=== PATIENT | female | born 1980 | race Caucasian/White ===

== ENCOUNTER 2019-12-09 20:17 | Emergency (ER) | payer OTHER ==
[2019-12-09] MEDS ORDERED: HYDROmorphone 1 MG/ML Syringe IVPUSH ONE (20:49)
[2019-12-09] MEDS ORDERED: Ondansetron 4 MG/2 ML SDV IVPUSH ONE (20:50)
[2019-12-09] MEDS ORDERED: Sodium Chloride 0.9% 10 ML Syringe FLUSH PRN (20:50)
--- NOTE | 2019-12-09 20:56 | EDM.PDOC ---
ED HPI GENERAL MEDICAL PROBLEM - General Chief Complaint: General Stated Complaint: RECENT RIGHT ARM SURGERY PAIN AND VOMITTING Time Seen by Provider: 12/09/19 20:28 Source of Information: Reports: Patient History Limitations: Reports: No Limitations - History of Present Illness INITIAL COMMENTS - FREE TEXT/NARRATIVE: Ms. Durham is a very pleasant 39-year-old woman who now presents the ED stating that she underwent arthroscopic repair of a right biceps tendon injury on 11/28/2019, at an outpatient [facility]. She was discharged home with a prescription for an opioid pain reliever, however, she states that it made her feel weird, therefore she has not taken any since or Thursday , 12/01/2019 or 12/02/2019. Instead, she has been alternating 2 tablets of [id number] acetaminophen, twice a day, and ibuprofen 600 mg twice a day. She states that her right shoulder pain has never been well controlled, even when she was taking the opioid pain reliever. She then developed nausea and vomiting this past 12/07/2019, despite not taking the opioid pain reliever. The patient states that her right shoulder pain is out of control. She denies any new injury to her right shoulder or right upper extremity. The patient acknowledges that she has not contacted the office of her Orthopedic Surgeon about her symptoms. Here in the ED, the patient's initial BP is found to be elevated at 149/126, otherwise, she is hemodynamically stable, afebrile, saturating 98% on room air. Other than her right shoulder pain, nausea, and vomiting, the patient denies recent fever, chills, sore throat, ear pain, nasal or sinus congestion, cough, dyspnea, chest pain, palpitations, nausea, vomiting, constipation, diarrhea, abdominal pain, urinary symptoms, recent weight gain or weight loss, recent bloody bowel movements or black bowel movements, recent joint aches, headaches, or rashes. The patient states that she is scheduled to begin physical therapy this coming 12/14/2019. The patient's PCP is Karrie Olson NP. Her Orthopedic Surgeon is Dr. Nomi Swanson. Right Shoulder Pain Score (Numeric/FACES): 10 - Related Data Allergies Allergy/AdvReac Type Severity Reaction Status Date / Time adhesive Allergy Rash Verified 12/09/19 20:28 Bleach (Sodium Hypochlorite) Allergy Rash Verified 12/09/19 20:28 latex Allergy Rash Verified 12/09/19 20:28 Home Meds: Home Meds ALPRAZolam [Xanax] 1 mg PO QID PRN 12/09/19 [History] Dicyclomine [Bentyl] 0 mg PO TID 12/09/19 [History] Ondansetron [Zofran ODT] 1 tab PO Q8H PRN #10 tab.dis 12/09/19 [Rx] Past Medical History HEENT History: Reports: Impaired Vision Psychiatric History: Reports: Anxiety - Past Surgical History HEENT Surgical History: Reports: Adenoidectomy, Oral Surgery (wisdom teeth extraction), Tonsillectomy GI Surgical History: Reports: Cholecystectomy (2012) Female Surgical History: Reports: Section (x 3), D&C (x 1), Hysterectomy (partial) Musculoskeletal Surgical History: Reports: Shoulder Surgery (right, arthroscopic, 11/28/2019) Social & Family History - Tobacco Use Smoking Status *Q: Current Every Day Smoker Years of Tobacco use: 18 Packs/Tins Daily: 0.2 Packs/Tins Daily Comment: Down from 1 ppd - Caffeine Use Caffeine Use: Reports: Energy Drinks, Soda - Alcohol Use Alcohol Use History: Yes Alcohol Use Frequency: Rarely - Recreational Drug Use Recreational Drug Use: No - Living Situation & Occupation Living situation: Reports: Single, with Significant Other (Boyfriend) Occupation: Unemployed ED ROS GENERAL - Review of Systems Review Of Systems: Comprehensive ROS is negative, except as noted in HPI. ED EXAM, GENERAL - Physical Exam Exam: See Below Exam Limited By: No Limitations General Appearance: Alert, WD/WN, No Apparent Distress Extremities: Other (The patient's right upper extremity is in a shoulder immobilizer, which was not removed for examination. There are surgical wounds over the upper lateral shoulder, with Steri-Strips still attached, and there are several aging ecchymoses to the anterior upper arm. Neurovascular status of the right upper extremity is intact.) Course - Vital Signs Last Recorded V/S: Last Vital Signs Temp 36.4 C 12/09/19 20:25 Pulse 98 12/09/19 20:25 Resp 18 12/09/19 20:25 BP 149/126 H 07/31/20 20:25 Pulse Ox 98 12/09/19 20:25 - Orders/Labs/Meds Orders: Active Orders 24 hr Category Date Time Status Peripheral IV Care [RC] . DIRECTED Care 12/09/19 20:50 Active Peripheral IV Insertion Adult [OM.PC] Routine Oth 12/09/19 20:50 Ordered Meds: Medications Discontinued Medications Generic Name Dose Route Start Last Admin Trade Name Fremaddy PRN Reason Stop Dose Admin Hydromorphone HCl 1 mg 12/09/19 20:49 12/09/19 21:00 Dilaudid IVPUSH 12/09/19 20:50 1 mg ONETIME ONE Administration Ondansetron HCl 4 mg 12/09/19 20:50 12/09/19 21:00 Zofran IVPUSH 12/09/19 20:51 4 mg ONETIME ONE Administration Sodium Chloride 10 ml 12/09/19 20:50 12/09/19 21:00 Saline Flush FLUSH 10 ml ASDIRECTED PRN Administration Keep Vein Open - Re-Assessments/Exams Free Text/Narrative Re-Assessment/Exam: 12/09/19 20:50 As above, the patient underwent right shoulder arthroscopic surgery on 11/28/2019, but has not been taking her prescribed opioid pain reliever since , 12/01/2019 or 12/02/2019, due to them making her feel weird. For reasons unclear, she developed nausea and vomiting this past 12/07/2019, despite not being on the opioid pain reliever. She states that her pain was never well controlled, even when she was taking the oral opioids. No new injury to the arm, and other than some aging ecchymosis and healing surgical wounds still covered by Steri-Strips, there are no visible abnormalities to the arm. I do not see an indication for x-rays. For today's purposes, the patient will be given an injection of IV Dilaudid and IV Zofran, after which I will discharge her home with a prescription for oral Zofran. I encouraged her to contact the office of Dr. Swanson, to let them know what is going on. Departure - Departure Time of Disposition: 20:55 Disposition: Home, Self-Care 01 Condition: Good Clinical Impression: Nausea & vomiting, Acute postoperative pain of right shoulder - Discharge Information *PRESCRIPTION DRUG MONITORING PROGRAM REVIEWED*: No *COPY OF PRESCRIPTION DRUG MONITORING REPORT IN PATIENT JOSSELIN: No Prescriptions: Ondansetron [Zofran ODT] 1 tab PO Q8H PRN #10 tab.dis PRN Reason: Nausea/Vomiting Instructions: Nausea and Vomiting, Adult Referrals: Karrie Olson NP [Primary Care Provider] - Nomi Swanson MD [Ordering Only Provider] - Forms: ED Department Discharge Additional Instructions: You were seen in the emergency room for uncontrolled right shoulder pain following surgery on the shoulder on 11/28/2019, along with nausea and vomiting that developed this past 12/07/2019. You were treated with an injection of the pain medicine Dilaudid, and the anti- nausea medicine Zofran in the ER. A prescription for Zofran has been sent to the [place] [facility], located in the [facility] grocery store. You may dissolve 1 tablet of Zofran on your tongue up to every 8 hours, as needed for nausea/vomiting. We recommend that you continue to take vgib-fwz-[id number] ibuprofen, 3 tablets (600 mg) around the clock, with food, as needed for discomfort. You may take 1 to 2 tablets of your prescription opioid pain reliever up to every 6 hours, as needed for pain not relieved by ibuprofen. If you take the opioid pain reliever, do not drive for 12 hours afterwards. The opioid pain reliever may cause constipation, so consider taking a stool softener. If you are taking the opioid pain reliever, do not also take acetaminophen (Tylenol), since there is already acetaminophen in the opioid pain reliever. As discussed, we strongly recommend that you contact the office of your Orthopedic Surgeon, Dr. Nomi Swanson, to let them know about your pain, nausea, and vomiting. If any other problems, please do not hesitate to return to the ER. Sepsis Event Note (ED) - Evaluation Sepsis Screening Result: No Definite Risk - Focused Exam Vital Signs: Vital Signs Temp Pulse Resp BP Pulse Ox 12/09/19 20:25 36.4 C 98 18 149/126 H 98 - My Orders Last 24 Hours: My Active Orders 12/09/19 20:50 Peripheral IV Care [RC] . DIRECTED Peripheral IV Insertion Adult [OM.PC] Routine - Assessment/Plan Last 24 Hours: My Active Orders 12/09/19 20:50 Peripheral IV Care [RC] . DIRECTED Peripheral IV Insertion Adult [OM.PC] Routine
== END 2019-12-09 21:25 | disposition home or self-care (01) ==
LOC: JD.ED 20:17
DX: G89.18 Other acute postprocedural pain (principal); M25.511 Pain in right shoulder; R11.2 Nausea with vomiting, unspecified; F41.9 Anxiety disorder, unspecified; F17.210 Nicotine dependence, cigarettes, uncomplicated; Z91.048 Other nonmedicinal substance allergy status; Z91.040 Latex allergy status; Z79.899 Other long term (current) drug therapy
CPT/HCPCS: 96374; 96375; 99283; J1170; J2405

== ENCOUNTER 2020-08-24 21:52 | Emergency (ER) | payer BC, MEDICAID ==
[2020-08-24] MEDS ORDERED: Amoxicillin/Clavulanate K 875-125 MG Tab PO ONE (22:12)
[2020-08-24] MEDS ORDERED: Ketorolac 60 MG/2 ML SDV IM ONE (22:13)
[2020-08-24] MEDS ORDERED: Acetaminophen/HYDROcodone 325-5 MG Tab PO ONE (22:13)
--- NOTE | 2020-08-24 22:21 | EDM.PDOC ---
ED HPI GENERAL MEDICAL PROBLEM - General Chief Complaint: ENT Problem Stated Complaint: ear pain Time Seen by Provider: 08/24/20 22:06 Source of Information: Reports: Patient, RN Notes Reviewed History Limitations: Reports: No Limitations - History of Present Illness INITIAL COMMENTS - FREE TEXT/NARRATIVE: Patient is a 39-year-old female presenting to the emergency department with complaints of right ear pain for the last week. She states she has a history of recurrent ear infections and normally gets 2 in the spring and 2 in the fall. States that her hearing is muffled and she can feel popping in her ear. Denies any fever. She has been using Tylenol and ibuprofen for pain with little relief. Right Ear Pain Score (Numeric/FACES): 10 - Related Data Allergies Allergy/AdvReac Type Severity Reaction Status Date / Time adhesive Allergy Rash Verified 08/24/20 22:03 bee venom protein (honey bee) Allergy Airway Verified 08/24/20 22:03 Tightness Bleach (Sodium Hypochlorite) Allergy Rash Verified 08/24/20 22:03 latex Allergy Rash Verified 08/24/20 22:03 Home Meds: Home Meds ALPRAZolam [Xanax] 1 mg PO QID PRN 12/09/19 [History] Dicyclomine [Bentyl] 10 mg PO TID PRN 12/09/19 [History] Acetaminophen/HYDROcodone [[place]port 325-5 MG] 1 tab PO Q4H PRN #5 tablet 08/24/20 [Rx] Amoxicillin/Potassium Clav [Augmentin 875-125 Tablet] 1 each PO BID 7 Days #13 tablet 08/24/20 [Rx] Verapamil [Calan SR] 120 mg PO DAILY PRN 08/24/20 [History] Past Medical History HEENT History: Reports: Impaired Vision, Other (See Below) Other HEENT History: ear infections Cardiovascular History: Reports: None Respiratory History: Reports: None [employer] History: Reports: Neurological History: Reports: Migraines Psychiatric History: Reports: Anxiety Endocrine/Metabolic History: Reports: None Hematologic History: Reports: None Immunologic History: Reports: None Oncologic (Cancer) History: Reports: None Dermatologic History: Reports: None - Infectious Disease History Infectious Disease History: Reports: None - Past Surgical History HEENT Surgical History: Reports: Adenoidectomy, Myringotomy w Tube(s), Oral Surgery, Tonsillectomy GI Surgical History: Reports: Cholecystectomy Female Surgical History: Reports: Section, D&C, Hysterectomy Musculoskeletal Surgical History: Reports: Shoulder Surgery Social & Family History - Family History Family Medical History: No Pertinent Family History - Tobacco Use Tobacco Use Status *Q: Current Every Day Tobacco User Years of Tobacco use: 5 Packs/Tins Daily: 0.5 - Caffeine Use Caffeine Use: Reports: Energy Drinks, Soda - Recreational Drug Use Recreational Drug Use: No - Living Situation & Occupation Living situation: Reports: Single, with Significant Other (Boyfriend) Occupation: Unemployed ED ROS ENT - Review of Systems Review Of Systems: Comprehensive ROS is negative, except as noted in HPI. ED EXAM, ENT - Physical Exam Exam: See Below Exam Limited By: No Limitations General Appearance: Alert, WD/WN, No Apparent Distress Ears: Normal External Exam, Normal Canal, TM Bulging (Right), TM Dullness (Right), TM Erythema (Right). No: TM Blood, TM Fluid, TM Perforation, TM Vesicles Respiratory/Chest: No Respiratory Distress, Lungs Clear, Normal Breath Sounds, No Accessory Muscle Use, Chest Non-Tender Cardiovascular: Normal Peripheral Pulses, Regular Rate, Rhythm, No Edema, No Gallop, No JVD, No Murmur, No Rub Course - Vital Signs Last Recorded V/S: Last Vital Signs Temp 97.8 F 08/24/20 22:00 Pulse 85 08/24/20 22:00 Resp 16 08/24/20 22:00 BP 142/92 H 08/24/20 22:00 Pulse Ox 100 08/24/20 22:00 - Orders/Labs/Meds Meds: Medications Discontinued Medications Generic Name Dose Route Start Last Admin Trade Name Paulo PRN Reason Stop Dose Admin Hydrocodone Bitart/Acetaminophen 1 tab 08/24/20 22:13 Acetaminophen/Hydrocodone 325-5 Mg Tab PO 08/24/20 22:14 ONETIME ONE Amoxicillin/Clavulanate Potassium 1 tab 08/24/20 22:12 Amoxicillin/Clavulanate K 875-125 Mg Tab PO 08/24/20 22:13 ONETIME ONE Ketorolac Tromethamine 60 mg 08/24/20 22:13 Ketorolac 60 Mg/2 Ml Sdv IM 08/24/20 22:14 ONETIME ONE - Re-Assessments/Exams Free Text/Narrative Re-Assessment/Exam: Patient is a 39-year-old female presenting to the emergency department with complaints of a 1 week history of pain to her right ear. On exam, her TM is erythematous, bulging, and dull consistent with a diagnosis of otitis media. I will start her on Augmentin for treatment of this. Also give her a shot of Toradol as well as a Waterport in the emergency department. I will send a short course of Waterport for pain as well as antibiotics to [place] pharmacy. Discharge instructions as documented. Departure - Departure Time of Disposition: 22:18 Disposition: Home, Self-Care 01 Condition: Good Clinical Impression: Otitis media Qualifiers: Otitis media type: serous Chronicity: acute Laterality: right Recurrence: not specified as recurrent Qualified Code(s): H65.01 - Acute serous otitis media, right ear - Discharge Information *PRESCRIPTION DRUG MONITORING PROGRAM REVIEWED*: Yes *COPY OF PRESCRIPTION DRUG MONITORING REPORT IN PATIENT JOSSELIN: No Prescriptions: Amoxicillin/Potassium Clav [Augmentin 875-125 Tablet] 1 each PO BID 7 Days #13 tablet Acetaminophen/HYDROcodone [[place]port 325-5 MG] 1 tab PO Q4H PRN #5 tablet PRN Reason: Pain Instructions: Otitis Media, Adult, [id number] Referrals: Karrie Olson NP [Primary Care Provider] - Additional Instructions: You were seen in the emergency department today for right ear last week. On exam, you do have a right ear infection. You been started on Augmentin which is an antibiotic. Take this medication as prescribed. Recommend routine Tylenol and ibuprofen for pain. For pain not relieved by this, short course of Tylenol with hydrocodone has been sent. Take this only as prescribed. Do not work or drive for 12 hours after taking this medication as it can be sedating. If symptoms fail to improve by early next week, recommend follow-up in the clinic with your primary care provider. Return to ER as needed. Sepsis Event Note (ED) - Evaluation Sepsis Screening Result: No Definite Risk - Focused Exam Vital Signs: Vital Signs Temp Pulse Resp BP Pulse Ox 08/24/20 22:00 97.8 F 85 16 142/92 H 100
== END 2020-08-24 22:28 | disposition home or self-care (01) ==
LOC: JD.ED 21:52
DX: H65.01 Acute serous otitis media, right ear (principal); Z91.048 Other nonmedicinal substance allergy status; Z91.030 Bee allergy status; Z91.040 Latex allergy status; Z72.0 Tobacco use
CPT/HCPCS: 96372; 99282; A9270; J1885; 99283

== ENCOUNTER 2020-10-03 16:07 | Emergency (ER) | payer MEDICAID ==
[2020-10-03] MEDS ORDERED: LORazepam 2 MG/ML SDV IVPUSH ONE (16:15)
--- NOTE | 2020-10-03 16:26 | EDM.PDOC ---
ED HPI GENERAL MEDICAL PROBLEM - General Chief Complaint: Neurological Problem Stated Complaint: [facility] Time Seen by Provider: 10/03/20 16:07 - History of Present Illness INITIAL COMMENTS - FREE TEXT/NARRATIVE: 40-year-old female presents the emergency department after being brought in by EMS after having a apparent seizure. Patient does not have a history of seizure disorder. No family history. The patient was in her car in a parking lot with her kids who reported that her eyes rolled back and she was shaking and she slumped back in her seat. It is unclear how long the seizure lasted and we have no more details on this. Patient denies illicit drug use or alcohol she uses Xanax on occasion for anxiety has not used this in a couple of days. She denies any possibility of . She has had a hysterectomy in the past. Headache Pain Score (Numeric/FACES): 7 - Related Data Allergies Allergy/AdvReac Type Severity Reaction Status Date / Time adhesive Allergy Rash Verified 10/03/20 16:13 bee venom protein (honey bee) Allergy Airway Verified 10/03/20 16:13 Tightness Bleach (Sodium Hypochlorite) Allergy Rash Verified 10/03/20 16:13 latex Allergy Rash Verified 10/03/20 16:13 Home Meds: Home Meds ALPRAZolam [Xanax] 1 mg PO QID PRN 12/09/19 [History] Verapamil [Calan SR] 120 mg PO DAILY PRN 08/24/20 [History] Past Medical History HEENT History: Reports: Impaired Vision, Other (See Below) Other HEENT History: ear infections Cardiovascular History: Reports: None Respiratory History: Reports: None 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: Neurological History: Reports: Migraines Psychiatric History: Reports: Anxiety Endocrine/Metabolic History: Reports: None Hematologic History: Reports: None Immunologic History: Reports: None Oncologic (Cancer) History: Reports: None Dermatologic History: Reports: None - Infectious Disease History Infectious Disease History: Reports: None - Past Surgical History HEENT Surgical History: Reports: Adenoidectomy, Myringotomy w Tube(s), Oral Surgery, Tonsillectomy GI Surgical History: Reports: Cholecystectomy Female Surgical History: Reports: Section, D&C, Hysterectomy Musculoskeletal Surgical History: Reports: Shoulder Surgery Social & Family History - Family History Family Medical History: No Pertinent Family History - Caffeine Use Caffeine Use: Reports: Energy Drinks, Soda - Living Situation & Occupation Living situation: Reports: Single, with Significant Other (Boyfriend) Occupation: Unemployed ED ROS GENERAL - Review of Systems Review Of Systems: See Below Constitutional: Reports: No Symptoms HEENT: Reports: No Symptoms Respiratory: Reports: No Symptoms Cardiovascular: Reports: No Symptoms GI/Abdominal: Reports: No Symptoms : Reports: No Symptoms Musculoskeletal: Reports: No Symptoms Skin: Reports: No Symptoms Neurological: Reports: Headache (She has chronic migraines but is on prophylactic therapy), Seizure Psychiatric: Reports: No Symptoms Hematologic/Lymphatic: Reports: No Symptoms Immunologic: Reports: No Symptoms ED EXAM, GENERAL - Physical Exam Exam: See Below Exam Limited By: No Limitations General Appearance: Alert, No Apparent Distress, Other (Upon EMS arriving she was postictal but she was nearly back to normal when she arrived here she has loss of events during the seizure but does recall walking out to the car.) Eye Exam: Bilateral Eye: Normal Inspection, PERRL Ears: Normal External Exam, Normal Canal, Hearing Grossly Normal, Normal TMs Nose: Normal Inspection, Normal Mucosa, No Blood Throat/Mouth: Normal Inspection, Normal Lips, Normal Teeth, Normal Gums, Normal Oropharynx, Normal Voice, No Airway Compromise, Other (She has what could be given little bit of trauma at the tip of her tongue but she is thinks this might be related to a prior piercing.) Head: Atraumatic, Normocephalic Neck: Normal Inspection, Supple, Non-Tender, Full Range of Motion Respiratory/Chest: No Respiratory Distress, Lungs Clear, Normal Breath Sounds Cardiovascular: Regular Rate, Rhythm, No Edema, No Murmur GI/Abdominal: Normal Bowel Sounds, Soft, Non-Tender Back Exam: Normal Inspection. No: CVA Tenderness (L), CVA Tenderness (R) Extremities: Normal Inspection, No Pedal Edema Neurological: Alert, Oriented, Normal Cognition Psychiatric: Normal Affect, Normal Mood Skin Exam: Warm, Dry, Intact #1 Interpretation EKG Date: 10/03/20 Rhythm: NSR Rate (Beats/Min): 89 [place]: Normal P-Wave: Present QRS: Normal ST-T: Normal QT: Normal Comparison: NA - No Prior EKG EKG Interpretation Comments: Normal EKG Course - Vital Signs Last Recorded V/S: Last Vital Signs Temp 36.2 C 10/03/20 16:17 Pulse 104 H 10/03/20 16:17 Resp 18 10/03/20 16:17 BP 133/89 10/03/20 16:17 Pulse Ox 96 10/03/20 16:17 - Orders/Labs/Meds Orders: Active Orders 24 hr Category Date Time Status EKG Documentation Completion [RC] STAT Care 10/03/20 16:17 Active Labs: Laboratory Tests 10/03/20 10/03/20 10/03/20 Range/Units 16:27 16:27 17:50 WBC 5.12 (3.98-10.04) K/mm3 RBC 4.61 (3.98-5.22) M/mm3 Hgb 14.4 (11.2-15.7) gm/dl Hct 43.0 (34.1-44.9) % MCV 93.3 (79.4-94.8) fl MCH 31.2 (25.6-32.2) pg MCHC 33.5 (32.2-35.5) g/dl RDW Std Deviation 42.3 (36.4-46.3) fL Plt Count 378 H (182-369) K/mm3 MPV 8.5 L (9.4-12.3) fl Neut % (Auto) 54.6 (34.0-71.1) % Lymph % (Auto) 35.0 (19.3-51.7) % [place] % (Auto) 8.4 (4.7-12.5) % Eos % (Auto) 1.6 (0.7-5.8) Baso % (Auto) 0.2 (0.1-1.2) % Neut # (Auto) 2.80 (1.56-6.13) K/mm3 Lymph # (Auto) 1.79 (1.18-3.74) K/mm3 [place] # (Auto) 0.43 H (0.24-0.36) K/mm3 Eos # (Auto) 0.08 (0.04-0.36) K/mm3 Baso # (Auto) 0.01 (0.01-0.08) K/mm3 Sodium 139 (136-145) mEq/L Potassium 4.1 (3.5-5.1) mEq/L Chloride 103 (98-107) mEq/L Carbon Dioxide 27 (21-32) mEq/L Anion Gap 13.1 (5-15) BUN 9 (7-18) mg/dL Creatinine 0.8 (0.55-1.02) mg/dL Est Cr Clr Drug Dosing 84.95 mL/min Estimated GFR (MDRD) > 60 (>60) mL/min BUN/Creatinine Ratio 11.3 L (14-18) Glucose 70 (70-99) mg/dL Calcium 8.7 (8.5-10.1) mg/dL Total Bilirubin 0.2 (0.2-1.0) mg/dL AST 20 (15-37) U/L ALT 30 (14-59) U/L Alkaline Phosphatase 95 (46-116) U/L Total Protein 7.0 (6.4-8.2) g/dl Albumin 3.8 (3.4-5.0) g/dl Globulin 3.2 gm/dL Albumin/Globulin Ratio 1.2 (1-2) Urine Color Yellow (Yellow) Urine Appearance Clear (Clear) Urine pH 6.0 (5.0-8.0) Ur Specific [place] 1.020 (1.005-1.030) Urine Protein Negative (Negative) Urine Glucose (UA) Negative (Negative) Urine Ketones Negative (Negative) Urine Occult Blood Negative (Negative) Urine Nitrite Negative (Negative) Urine Bilirubin Negative (Negative) Urine Urobilinogen 0.2 (0.2-1.0) Ur Leukocyte Esterase Negative (Negative) Urine Opiates Screen (PKTNHN=053) Ur Buprenorphine Scrn (CUTOFF=10) Ur Oxycodone Screen (UUZ4CR=857) Urine Methadone Screen (VBVZKJ=473) Ur Propoxyphene Screen (MKHHYR=399) Ur Barbiturates Screen (KVBLLG=517) Ur Tricyclics Screen (DVWGGX=436) Ur Phencyclidine Scrn (CUTOFF=25) Ur Amphetamine Screen (EDEAGL=582) U Methamphetamines Scrn (ZWFQVG=226) U Benzodiazepines Scrn (SLEJYE=452) U Cocaine Metab Screen (LWJRLT=135) U Marijuana (THC) Screen (CUTOFF=50) Ethyl Alcohol 0.00 (0.00) gm% 10/03/20 Range/Units 17:50 WBC (3.98-10.04) K/mm3 RBC (3.98-5.22) M/mm3 Hgb (11.2-15.7) gm/dl Hct (34.1-44.9) % MCV (79.4-94.8) fl MCH (25.6-32.2) pg MCHC (32.2-35.5) g/dl RDW Std Deviation (36.4-46.3) fL Plt Count (182-369) K/mm3 MPV (9.4-12.3) fl Neut % (Auto) (34.0-71.1) % Lymph % (Auto) (19.3-51.7) % [place] % (Auto) (4.7-12.5) % Eos % (Auto) (0.7-5.8) Baso % (Auto) (0.1-1.2) % Neut # (Auto) (1.56-6.13) K/mm3 Lymph # (Auto) (1.18-3.74) K/mm3 [place] # (Auto) (0.24-0.36) K/mm3 Eos # (Auto) (0.04-0.36) K/mm3 Baso # (Auto) (0.01-0.08) K/mm3 Sodium (136-145) mEq/L Potassium (3.5-5.1) mEq/L Chloride (98-107) mEq/L Carbon Dioxide (21-32) mEq/L Anion Gap (5-15) BUN (7-18) mg/dL Creatinine (0.55-1.02) mg/dL Est Cr Clr Drug Dosing mL/min Estimated GFR (MDRD) (>60) mL/min BUN/Creatinine Ratio (14-18) Glucose (70-99) mg/dL Calcium (8.5-10.1) mg/dL Total Bilirubin (0.2-1.0) mg/dL AST (15-37) U/L ALT (14-59) U/L Alkaline Phosphatase (46-116) U/L Total Protein (6.4-8.2) g/dl Albumin (3.4-5.0) g/dl Globulin gm/dL Albumin/Globulin Ratio (1-2) Urine Color (Yellow) Urine Appearance (Clear) Urine pH (5.0-8.0) Ur Specific [place] (1.005-1.030) Urine Protein (Negative) Urine Glucose (UA) (Negative) Urine Ketones (Negative) Urine Occult Blood (Negative) Urine Nitrite (Negative) Urine Bilirubin (Negative) Urine Urobilinogen (0.2-1.0) Ur Leukocyte Esterase (Negative) Urine Opiates Screen Negative (PMKTVV=028) Ur Buprenorphine Scrn Negative (CUTOFF=10) Ur Oxycodone Screen Negative (SBC1VR=417) Urine Methadone Screen Negative (HGUGDD=855) Ur Propoxyphene Screen Negative (GKSAYU=605) Ur Barbiturates Screen Negative (ALLTCA=509) Ur Tricyclics Screen Negative (GOLCCF=620) Ur Phencyclidine Scrn Negative (CUTOFF=25) Ur Amphetamine Screen Negative (UOXDUQ=081) U Methamphetamines Scrn Negative (YZLDKP=396) U Benzodiazepines Scrn Presumptive positive H (VULUKI=651) U Cocaine Metab Screen Negative (FOGERO=216) U Marijuana (THC) Screen Negative (CUTOFF=50) Ethyl Alcohol (0.00) gm% Meds: Medications Discontinued Medications Generic Name Dose Route Start Last Admin Trade Name Freq PRN Reason Stop Dose Admin Lorazepam 1 mg 10/03/20 16:15 10/03/20 16:25 Lorazepam 2 Mg/Ml Sdv IVPUSH 10/03/20 16:16 1 mg ONETIME ONE Administration - Re-Assessments/Exams Free Text/Narrative Re-Assessment/Exam: 10/03/20 18:[address] is unremarkable. I did discuss the patient having a MRI with and without contrast in the near future.. Laboratory evaluation is unremarkable benzodiazepines did show up in her urine but the patient uses Xanax on an as- needed basis for anxiety. I explained to the patient absolutely no uncertain terms she cannot drive until this all gets sorted out. Departure - Departure Time of Disposition: 18:59 Disposition: Home, Self-Care 01 Clinical Impression: Seizure-like activity - Discharge Information Forms: ED Department Discharge Additional Instructions: Return to the emergency room with any questions problems or unusual symptoms. You must not drive or operate hazardous equipment until this is entirely sorted out. Get plenty of rest. Follow-up with your regular healthcare provider this next week. Discuss getting a brain MRI with and without contrast also discussed getting the EEG done. Sepsis Event Note (ED) - Evaluation Sepsis Screening Result: No Definite Risk - Focused Exam Vital Signs: Vital Signs Temp Pulse Resp BP Pulse Ox 10/03/20 16:17 36.2 C 104 H 18 133/89 96 - My Orders Last 24 Hours: My Active Orders 10/03/20 16:17 EKG Documentation Completion [RC] STAT - Assessment/Plan Last 24 Hours: My Active Orders 10/03/20 16:17 EKG Documentation Completion [RC] STAT
--- NOTE | 2020-10-03 16:59 | CT ---
Head CT Technique: Multiple axial sections through the brain were obtained. Intravenous contrast was not utilized. Reconstructed coronal and sagittal images were obtained. Comparison: No prior head CT study is available Findings: Ventricles along with basal cisterns and sulci over the convexities are within normal limits for the patient's age. No abnormal parenchymal densities are seen. No evidence of intracranial hemorrhage. No midline shift or mass-effect is appreciated. Bone window settings were reviewed. Visualized paranasal sinuses and mastoid sinuses show nothing acute. No acute calvarial abnormality is appreciated. Impression: 1. Nothing acute is seen on noncontrast head CT exam. Note: Please consider MRI to further evaluate (without and with contrast) Diagnostic code #1
[2020-10-03] MEDS ORDERED: LORazepam 1 MG Tab PO ONE (18:59)
== END 2020-10-03 19:27 | disposition home or self-care (01) ==
LOC: JD.ED 16:07
DX: G40.909 Epilepsy, unspecified, not intractable, without status epilepticus (principal); Z91.040 Latex allergy status; Z91.030 Bee allergy status; Z91.018 Allergy to other foods; Z91.048 Other nonmedicinal substance allergy status
CPT/HCPCS: 36415; 70450; 80053; 80306; 80307; 81003; 85025; 93005; 96374; 99285; A9270; J2060; 93010; 99284

== ENCOUNTER 2020-11-28 10:06 | Emergency (ER) | payer MEDICAID ==
[2020-11-28] MEDS ORDERED: Sodium Chloride 0.9% 10 ML Syringe FLUSH PRN (10:14)
[2020-11-28] MEDS ORDERED: LORazepam 2 MG/ML SDV IVPUSH ONE (10:15)
--- NOTE | 2020-11-28 10:50 | CT ---
Head CT Technique: Multiple axial sections through the brain were obtained. Intravenous contrast was not utilized. Reconstructed coronal and sagittal images were obtained. Comparison: Prior brain MRI 10/11/[address] study of 10/03/20. Findings: Ventricles along with basal cisterns and sulci over the convexities are within normal limits for the patient's age. No abnormal parenchymal densities are seen. No evidence of intracranial hemorrhage is seen. No midline shift or mass-effect is seen. Bone window settings were reviewed. Visualized mastoid sinuses and paranasal sinuses show nothing acute. No acute calvarial abnormality is appreciated. Impression: 1. Nothing acute is seen on noncontrast head CT exam. 2. No appreciable change is seen from prior intracranial imaging. Diagnostic code #1
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
[2020-11-28] MEDS ORDERED: levETIRAcetam 1,000 MG in Sodium Chloride 0.9% 100 ML IV ONE (14:20)
== END 2020-11-28 15:25 | disposition home or self-care (01) ==
LOC: JD.ED 10:06
DX: R56.9 Unspecified convulsions (principal); K21.9 Gastro-esophageal reflux disease without esophagitis; Z88.0 Allergy status to penicillin; Z91.048 Other nonmedicinal substance allergy status; Z91.030 Bee allergy status; Z91.040 Latex allergy status; Z79.899 Other long term (current) drug therapy
CPT/HCPCS: 36415; 70450; 80053; 80306; 83735; 84703; 85025; 96365; 96375; 99285; J1953; J2060; 99284

== ENCOUNTER 2020-12-31 22:26 | Emergency (ER) | payer MEDICAID ==
[2020-12-31] MEDS ORDERED: Prochlorperazine 10 MG/2 ML SDV IVPUSH ONE (23:39)
[2020-12-31] MEDS ORDERED: Sodium Chloride 0.9% 10 ML Syringe FLUSH PRN (23:41)
[2020-12-31] MEDS ORDERED: Lactated Ringers 1,000 ML IV ONE (23:41)
--- NOTE | 2020-12-31 23:47 | EDM.PDOC ---
ED HPI GENERAL MEDICAL PROBLEM - General Chief Complaint: Headache Stated Complaint: MIGRAINE Time Seen by Provider: 12/31/20 23:30 - History of Present Illness INITIAL COMMENTS - FREE TEXT/NARRATIVE: Patient arrived to ED by private vehicle Complains of migraine headache, similar to prior episodes Has been having these "since puberty", currently occurring about twice per month Current episode began last night Associated "spots" in vision at onset Pain is localized to right forehead and scalp Associated nausea, without vomiting Associated photophobia Pain is exacerbated by motion Severity rated 10/10 Has taken 2 doses of hydrocodone medication since onset, without significant improvement 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 - Related Data Allergies Allergy/AdvReac Type Severity Reaction Status Date / Time adhesive Allergy Rash Verified 12/31/20 22:45 amoxicillin [From Augmentin] Allergy Unknown Verified 12/31/20 22:45 bee venom protein (honey bee) Allergy Airway Verified 12/31/20 22:45 Tightness Bleach (Sodium Hypochlorite) Allergy Rash Verified 12/31/20 22:45 clavulanic acid Allergy Unknown Verified 12/31/20 22:45 [From Augmentin] latex Allergy Rash Verified 12/31/20 22:45 Home Meds: Home Meds ALPRAZolam [Xanax] 1 mg PO QID PRN 12/09/19 [History] Verapamil [Calan SR] 120 mg PO DAILY PRN 08/24/20 [History] Escitalopram [Lexapro] 20 mg PO DAILY 10/10/20 [History] Hydrocodone/Acetaminophen [Hydrocodone-Acetamin 10-325 mg] 1 each PO Q6HR PRN 10/10/20 [History] Omeprazole 40 mg PO DAILY 10/10/20 [History] Sodium Chloride [Saline Nasal [place]] 59 ml NS DAILY 10/10/20 [History] ondansetron HCL [Zofran] 4 mg PO DAILY 10/10/20 [History] Past Medical History HEENT History: Reports: Impaired Vision, Other (See Below) Other HEENT History: ear infections Cardiovascular History: Reports: None Respiratory History: Reports: None 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: Reports: GERD Genitourinary History: Reports: None 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: Neurological History: Reports: Migraines, Seizure Psychiatric History: Reports: Anxiety, Depression Endocrine/Metabolic History: Reports: None Hematologic History: Reports: None Immunologic History: Reports: None Oncologic (Cancer) History: Reports: None Dermatologic History: Reports: None - Infectious Disease History Infectious Disease History: Reports: Chicken Pox - Past Surgical History Head Surgeries/Procedures: Reports: None HEENT Surgical History: Reports: Adenoidectomy, Myringotomy w Tube(s), Oral Surgery, Tonsillectomy GI Surgical History: Reports: Cholecystectomy Female Surgical History: Reports: Section, D&C, Hysterectomy Musculoskeletal Surgical History: Reports: Shoulder Surgery Social & Family History - Family History Family Medical History: No Pertinent Family History Oncologic: Reports: Breast - Tobacco Use Tobacco Use Status *Q: Current Every Day Tobacco User Years of Tobacco use: 20 Packs/Tins Daily: 0.2 - Caffeine Use Caffeine Use: Reports: Energy Drinks, Soda - Recreational Drug Use Recreational Drug Use: No - Living Situation & Occupation Living situation: Reports: Single, with Significant Other (Boyfriend) Occupation: Unemployed ED ROS GENERAL - Review of Systems Review Of Systems: See Below Free Text/Narrative/Comment: Constitutional - no fever Eyes - photophobia; visual disturbance ENT - no rhinorrhea; no congestion; no epistaxis Cardiovascular - no chest pain Respiratory - no shortness of breath; mild cough x2 days Gastrointestinal - no abdominal pain; nausea; no vomiting; no diarrhea Genitourinary - no dysuria Musculoskeletal - neck pain; no back pain; no extremity injury; body aches x2 days Neurological - headache; no speech disturbance; no weakness ED EXAM, GENERAL - Physical Exam Exam: See Below Free Text/Narrative:: Constitutional - awake; alert; moderate pain distress; sitting quietly in a darkened room Head - no facial swelling or weakness Eyes - extra ocular motion intact; conjunctiva normal; pupils equal and reactive to light ENT - no nasal deformity; no epistaxis; normal phonation; mucus membranes moist; Neck - no swelling; no meningismus Respiratory - normal respiratory effort; no crackles or wheezing; no stridor Cardiovascular - regular rhythm; normal rate; S1; S2; grade 1/6 systolic murmur GI/Abdomen - normal bowel sounds; soft; no tenderness; no rebound; no guarding; no mass Musculoskeletal - grossly normal strength and motion; no swelling or deformity Skin - warm; dry Neurologic - normal speech; no weakness Psychiatric - normal mood and affect; memory and attention normal Course - Vital Signs Text/Narrative:: . Considered etiologies included: Headache, nausea, photophobia, migraine syndrome Symptoms and examination were discussed There was no indication for ED investigations Treatment was initiated with IV fluid infusion and prochlorperazine At reevaluation nausea had improved, and headache severity had decreased to 7/10 Additional treatment was provided with IV ketorolac She reported further headache improvement to 5/10, and felt comfortable for discharge at that point Patient was felt to be stable for outpatient follow-up Return precautions were provided Last Recorded V/S: Last Vital Signs Temp 36.2 C 12/31/20 22:35 Pulse 84 12/31/20 22:35 Resp 18 12/31/20 22:35 BP 146/88 H 12/31/20 22:35 Pulse Ox 98 12/31/20 22:35 - Orders/Labs/Meds Orders: Active Orders 24 hr Category Date Time Status Peripheral IV Insertion Adult [OM.PC] Stat Oth 12/31/20 23:41 Ordered Meds: Medications Discontinued Medications Generic Name Dose Route Start Last Admin Trade Name Freq PRN Reason Stop Dose Admin Lactated Ringer's 1,000 mls @ 999 mls/hr 12/31/20 23:41 12/31/20 23:59 Ringers, Lactated IV 01/01/21 00:41 999 mls/hr .BOLUS ONE Administration Ketorolac Tromethamine 15 mg 01/01/21 00:49 01/01/21 00:57 Ketorolac 15 Mg/Ml Sdv IVPUSH 01/01/21 00:50 15 mg ONETIME ONE Administration Prochlorperazine Edisylate 10 mg 12/31/20 23:39 12/31/20 23:59 Prochlorperazine 10 Mg/2 Ml Sdv IVPUSH 12/31/20 23:40 10 mg ONETIME ONE Administration Sodium Chloride 10 ml 12/31/20 23:41 01/01/21 00:02 Sodium Chloride 0.9% 10 Ml Syringe FLUSH 10 ml ASDIRECTED PRN Administration Keep Vein Open Departure - Departure Time of Disposition: 01:48 Disposition: Home, Self-Care 01 Clinical Impression: Migraine headache - Discharge Information *PRESCRIPTION DRUG MONITORING PROGRAM REVIEWED*: Not Applicable *COPY OF PRESCRIPTION DRUG MONITORING REPORT IN PATIENT JOSSELIN: Not Applicable Instructions: Migraine Headache Referrals: Karrie Olson NP [Primary Care Provider] - Forms: ED Department Discharge Additional Instructions: Return if condition worsens May resume general activity and regular diet as tolerated Continue usual medications Follow-up with primary care provider is recommended in 5 to 7 days - My Orders Last 24 Hours: My Active Orders 12/31/20 23:41 Peripheral IV Insertion Adult [OM.PC] Stat - Assessment/Plan Last 24 Hours: My Active Orders 12/31/20 23:41 Peripheral IV Insertion Adult [OM.PC] Stat
[2021-01-01] MEDS ORDERED: Morphine 4 MG/ML Syringe IVPUSH ONE (00:48)
[2021-01-01] MEDS ORDERED: Ketorolac 15 MG/ML SDV IVPUSH ONE (00:49)
== END 2021-01-01 02:00 | disposition home or self-care (01) ==
LOC: JD.ED 22:26
DX: G43.909 Migraine, unspecified, not intractable, without status migrainosus (principal); K21.9 Gastro-esophageal reflux disease without esophagitis; Z72.0 Tobacco use; Z91.030 Bee allergy status; Z88.1 Allergy status to other antibiotic agents; Z91.040 Latex allergy status; Z91.048 Other nonmedicinal substance allergy status; Z88.0 Allergy status to penicillin; Z88.8 Allergy status to other drugs, medicaments and biological substances; Z79.899 Other long term (current) drug therapy
CPT/HCPCS: 96374; 96375; 99283; 99283-25; J0780; J1885; J7120

== ENCOUNTER 2021-01-02 17:36 | Emergency (ER) | payer MEDICAID ==
--- NOTE | 2021-01-02 18:48 | EDM.PDOC ---
ED HPI GENERAL MEDICAL PROBLEM - General Chief Complaint: Respiratory Problem Stated Complaint: COVID+ COUGH HEADACHE SOB Time Seen by Provider: 01/02/21 17:44 Source of Information: Reports: Patient History Limitations: Reports: No Limitations - History of Present Illness INITIAL COMMENTS - FREE TEXT/NARRATIVE: 40-year-old female presents the emergency department today with complaints of a positive diagnosis of Covid with cough and shortness of breath. Per the patient's report she was seen in the emergency department here 2 days ago for migraine headache. She states that did resolve with treatment and yesterday she went to a . She states that after the her headache had returned so she went to the walk-in clinic and was seen and they tested her for Covid and this came back positive. Patient presents today with cough and shortness of breath. She denies any recent fever, chills, nausea, vomiting or diarrhea. She states she still has her taste and smell. She denies any abdominal pain. She denies sore throat. She states that she still has a good appetite. Generalized Pain Score (Numeric/FACES): 8 - Related Data Allergies Allergy/AdvReac Type Severity Reaction Status Date / Time adhesive Allergy Rash Verified 01/02/21 17:46 amoxicillin [From Augmentin] Allergy Unknown Verified 01/02/21 17:46 bee venom protein (honey bee) Allergy Airway Verified 01/02/21 17:46 Tightness Bleach (Sodium Hypochlorite) Allergy Rash Verified 01/02/21 17:46 clavulanic acid Allergy Unknown Verified 01/02/21 17:46 [From Augmentin] latex Allergy Rash Verified 01/02/21 17:46 Home Meds: Home Meds ALPRAZolam [Xanax] 1 mg PO QID PRN 12/09/19 [History] Verapamil [Calan SR] 120 mg PO DAILY PRN 08/24/20 [History] Escitalopram [Lexapro] 20 mg PO DAILY 10/10/20 [History] Hydrocodone/Acetaminophen [Hydrocodone-Acetamin 10-325 mg] 1 each PO Q6HR PRN 10/10/20 [History] Omeprazole 40 mg PO DAILY 10/10/20 [History] Sodium Chloride [Saline Nasal [place]] 59 ml NS DAILY 10/10/20 [History] Benzonatate [Tessalon Perle] 100 mg PO TID PRN #20 capsule 01/02/21 [Rx] Promethazine [Phenergan] 25 mg PO Q6H PRN 01/02/21 [History] Past Medical History HEENT History: Reports: Impaired Vision, Other (See Below) Other HEENT History: ear infections Cardiovascular History: Reports: None Respiratory History: Reports: None 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: Reports: GERD Genitourinary History: Reports: None 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: Neurological History: Reports: Migraines, Seizure Psychiatric History: Reports: Anxiety, Depression Endocrine/Metabolic History: Reports: None Hematologic History: Reports: None Immunologic History: Reports: None Oncologic (Cancer) History: Reports: None Dermatologic History: Reports: None - Infectious Disease History Infectious Disease History: Reports: Chicken Pox, Novel Coronavirus - Past Surgical History Head Surgeries/Procedures: Reports: None HEENT Surgical History: Reports: Adenoidectomy, Myringotomy w Tube(s), Oral Surgery, Tonsillectomy GI Surgical History: Reports: Cholecystectomy Female Surgical History: Reports: Section, D&C, Hysterectomy Musculoskeletal Surgical History: Reports: Shoulder Surgery Social & Family History - Family History Family Medical History: No Pertinent Family History Oncologic: Reports: Breast - Tobacco Use Tobacco Use Status *Q: Current Every Day Tobacco User Years of Tobacco use: 20 Packs/Tins Daily: 1 - Caffeine Use Caffeine Use: Reports: Energy Drinks, Soda, Tea - Recreational Drug Use Recreational Drug Use: No - Living Situation & Occupation Living situation: Reports: Single, with Significant Other (Boyfriend) Occupation: Unemployed ED ROS GENERAL - Review of Systems Review Of Systems: Comprehensive ROS is negative, except as noted in HPI. ED EXAM, GENERAL - Physical Exam Exam: See Below Exam Limited By: No Limitations General Appearance: Alert, WD/WN, No Apparent Distress Ears: Normal External Exam, Hearing Grossly Normal Nose: Normal Inspection Throat/Mouth: Normal Inspection, Normal Lips, Normal Voice, No Airway Compromise Head: Atraumatic Neck: Normal Inspection, Supple Respiratory/Chest: No Respiratory Distress, Lungs Clear, Normal Breath Sounds, No Accessory Muscle Use, Chest Non-Tender Cardiovascular: Normal Peripheral Pulses, Regular Rate, Rhythm, No Edema, No Murmur Peripheral Pulses: 2+: Radial (L), Radial (R) GI/Abdominal: Normal Bowel Sounds, Soft, Non-Tender, No Distention (Female) Exam: Deferred Rectal (Female) Exam: Deferred Back Exam: Normal Inspection Extremities: Normal Inspection Neurological: Alert, Oriented, Normal Cognition Psychiatric: Normal Affect, Normal Mood Skin Exam: Warm, Dry, Intact, Normal Color, No Rash Lymphatic: No Adenopathy Course - Vital Signs Text/Narrative:: As stated above, patient presents with Covid symptoms of shortness of breath and cough. At the time of my assessment, the patient's O2 saturations are 100% on room air. She denies any other Covid type of symptoms other than the shortness of breath or cough. Physical exam is completely unremarkable at this time. I have ordered a portable chest x-ray. Last Recorded V/S: Last Vital Signs Temp 97.9 F 01/02/21 17:54 Pulse 78 01/02/21 17:54 Resp 18 01/02/21 17:54 BP 118/82 01/02/21 17:54 Pulse Ox 100 01/02/21 17:54 - Orders/Labs/Meds Orders: Active Orders 24 hr Category Date Time Status Chest 1V Frontal [CR] Stat Exams 01/02/21 18:10 Taken - Re-Assessments/Exams Free Text/Narrative Re-Assessment/Exam: 01/02/21 18:45 Nothing acute is appreciated on portable view of the chest. Formal radiologist report is pending. Departure - Departure Time of Disposition: 18:47 Disposition: Home, Self-Care 01 Condition: Good Clinical Impression: COVID-19 - Discharge Information Prescriptions: Benzonatate [Tessalon Perle] 100 mg PO TID PRN #20 capsule PRN Reason: Cough Instructions: COVID-19: What to Do if You Are Sick - CDC (05/10/2020), COVID- 19: Quarantine vs. Isolation - CDC (04/26/2020), COVID-19 Frequently Asked Questions Referrals: PCP,None [Primary Care Provider] - Additional Instructions: You were seen in the emergency department today with complaints of cough and shortness of breath related to Covid. Chest x-ray was completed and it did not show any pneumonia. I have sent prescription for medication called Ginisalleti Rust to your pharmacy. This medication is for cough. You may take 1-2 tabs up to 3 times daily as needed for cough. You likely will develop fever, chills, nausea, vomiting and diarrhea. Your appetite will likely decrease. These are all symptoms of Covid. Go home, rest, and drink plenty of fluids. Stop smoking. You will need to quarantine for 10 days. Sepsis Event Note (ED) - Evaluation Sepsis Screening Result: No Definite Risk - Focused Exam Vital Signs: Vital Signs Temp Pulse Resp BP Pulse Ox 01/02/21 17:54 97.9 F 78 18 118/82 100 01/02/21 17:52 97.9 F 76 18 118/82 100 - My Orders Last 24 Hours: My Active Orders 01/02/21 18:10 Chest 1V Frontal [CR] Stat - Assessment/Plan Last 24 Hours: My Active Orders 01/02/21 18:10 Chest 1V Frontal [CR] Stat
--- NOTE | 2021-01-02 20:44 | CR ---
Chest: Frontal view of the chest was obtained. Comparison: No prior chest x-ray is available. Heart size and mediastinum are within normal limits. Lungs are clear with no acute parenchymal change. No acute osseous abnormality is seen. Minimal scoliosis is incidentally noted. Impression: 1. Nothing acute is seen on frontal chest x-ray. Diagnostic code #2
== END 2021-01-02 19:02 | disposition home or self-care (01) ==
LOC: JD.ED 17:36
DX: U07.1 COVID-19 (principal); K21.9 Gastro-esophageal reflux disease without esophagitis; Z79.899 Other long term (current) drug therapy; Z72.0 Tobacco use; Z91.048 Other nonmedicinal substance allergy status; Z88.0 Allergy status to penicillin; Z91.030 Bee allergy status; Z91.040 Latex allergy status; Z88.8 Allergy status to other drugs, medicaments and biological substances
CPT/HCPCS: 71045; 71045-26; 99283; 99284-25

== ENCOUNTER 2021-01-08 14:41 | Emergency (ER) | payer MEDICAID ==
[2021-01-08] MEDS: Dexamethasone 10 MG/ML SDV IVPUSH ONE (15:59)
[2021-01-08] MEDS: Ondansetron 4 MG/2 ML SDV IVPUSH ONE (15:59)
[2021-01-08] MEDS: Sodium Chloride 0.9% 10 ML Syringe FLUSH PRN (15:59)
[2021-01-08] MEDS: Sodium Chloride 0.9% 1,000 ML IV SCH (15:59)
--- NOTE | 2021-01-08 16:06 | CR ---
Chest: Portable AP view of the chest was obtained. Comparison: Prior chest x-ray of 01/02/21. Heart size and mediastinum are within normal limits. Lungs are clear with no acute parenchymal change. Minimal scoliosis is seen. Surgical clip is seen within the upper right abdomen presumably from prior cholecystectomy. Impression: 1. Nothing acute is seen on portable chest x-ray. Diagnostic code #2
--- NOTE | 2021-01-08 17:29 | EDM.PDOC ---
ED HPI GENERAL MEDICAL PROBLEM - General Chief Complaint: Gastrointestinal Problem Stated Complaint: COVID +/HEADACHE/COUGH/VOMITING/DIZZY Time Seen by Provider: 01/08/21 14:58 Source of Information: Reports: Patient History Limitations: Reports: No Limitations - History of Present Illness INITIAL COMMENTS - FREE TEXT/NARRATIVE: The patient presents with COVID, nausea, vomiting, diarrhea and generalized weakness. She was seen here 5 days ago. She has a slight cough but no shortness of breath. She has no chest pain. She has some abdominal cramping at times. She has a history of seizures but no history of heart disease, hypertension, hypercholesterolemia or diabetes. She does not smoke. Onset: Gradual Duration: Day(s): Location: Reports: Abdomen Quality: Reports: Other (cramping) Severity: Mild Improves with: Reports: None Worsens with: Reports: None Associated Symptoms: Reports: Cough, Nausea/Vomiting. Denies: Chest Pain, Fever/Chills, Headaches, Shortness of Breath - Related Data Allergies Allergy/AdvReac Type Severity Reaction Status Date / Time adhesive Allergy Rash Verified 01/08/21 15:00 amoxicillin [From Augmentin] Allergy Unknown Verified 01/08/21 15:00 bee venom protein (honey bee) Allergy Airway Verified 01/08/21 15:00 Tightness Bleach (Sodium Hypochlorite) Allergy Rash Verified 01/08/21 15:00 clavulanic acid Allergy Unknown Verified 01/08/21 15:00 [From Augmentin] latex Allergy Rash Verified 01/08/21 15:00 Home Meds: Home Meds ALPRAZolam [Xanax] 1 mg PO QID PRN 12/09/19 [History] Verapamil [Calan SR] 120 mg PO DAILY PRN 08/24/20 [History] Escitalopram [Lexapro] 20 mg PO DAILY 10/10/20 [History] Hydrocodone/Acetaminophen [Hydrocodone-Acetamin 10-325 mg] 1 each PO Q6HR PRN 10/10/20 [History] Omeprazole 40 mg PO DAILY 10/10/20 [History] Sodium Chloride [Saline Nasal [place]] 59 ml NS DAILY 10/10/20 [History] Benzonatate [Tessalon Perle] 100 mg PO TID PRN #20 capsule 01/02/21 [Rx] Promethazine [Phenergan] 25 mg PO Q6H PRN 01/02/21 [History] Ondansetron [Zofran ODT] 4 mg PO Q6H PRN #20 tab.dis 01/08/21 [Rx] dexAMETHasone [Dexamethasone] 6 mg PO Q6H #12 tab 01/08/21 [Rx] Past Medical History HEENT History: Reports: Impaired Vision, Other (See Below) Other HEENT History: ear infections Cardiovascular History: Reports: None Respiratory History: Reports: None 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: Reports: GERD Genitourinary History: Reports: None [employer]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: Neurological History: Reports: Migraines, Seizure Psychiatric History: Reports: Anxiety, Depression Endocrine/Metabolic History: Reports: None Hematologic History: Reports: None Immunologic History: Reports: None Oncologic (Cancer) History: Reports: None Dermatologic History: Reports: None - Infectious Disease History Infectious Disease History: Reports: Chicken Pox, Novel Coronavirus - Past Surgical History Head Surgeries/Procedures: Reports: None HEENT Surgical History: Reports: Adenoidectomy, Myringotomy w Tube(s), Oral Surgery, Tonsillectomy GI Surgical History: Reports: Cholecystectomy Female Surgical History: Reports: Section, D&C, Hysterectomy Musculoskeletal Surgical History: Reports: Shoulder Surgery Social & Family History - Family History Family Medical History: No Pertinent Family History Oncologic: Reports: Breast - Tobacco Use Tobacco Use Status *Q: Current Every Day Tobacco User Years of Tobacco use: 20 Packs/Tins Daily: 0.1 - Caffeine Use Caffeine Use: Reports: Energy Drinks, Soda, Tea - Recreational Drug Use Recreational Drug Use: No - Living Situation & Occupation Living situation: Reports: Single, with Significant Other (Boyfriend) Occupation: Unemployed ED ROS GENERAL - Review of Systems Review Of Systems: See Below Constitutional: Reports: Malaise, Weakness, Fatigue. Denies: Fever, Chills HEENT: Reports: No Symptoms Respiratory: Reports: Cough. Denies: Shortness of Breath Cardiovascular: Reports: No Symptoms Endocrine: Reports: No Symptoms GI/Abdominal: Reports: Abdominal Pain, Diarrhea, Nausea, Vomiting : Reports: No Symptoms ED EXAM, GI/ABD - Physical Exam Exam: See Below Exam Limited By: No Limitations General Appearance: Alert, No Apparent Distress Ears: Normal External Exam Nose: Normal Inspection Head: Atraumatic, Normocephalic Neck: Normal Inspection Respiratory/Chest: No Respiratory Distress, Lungs Clear, Normal Breath Sounds Cardiovascular: Regular Rate, Rhythm, No Edema, No Murmur GI/Abdominal Exam: Soft, Non-Tender, No Organomegaly, No Mass Back Exam: Normal Inspection Extremities: Normal Inspection Course - Vital Signs Last Recorded V/S: Last Vital Signs Temp 97.9 F 01/08/21 14:58 Pulse 99 01/08/21 14:58 Resp 16 01/08/21 14:58 BP 123/101 H 01/08/21 14:58 Pulse Ox 97 01/08/21 14:58 - Orders/Labs/Meds Orders: Active Orders 24 hr Category Date Time Status Cardiac Monitoring [RC] . DIRECTED Care 01/08/21 15:28 Active Peripheral IV Care [RC] . DIRECTED Care 01/08/21 15:28 Active Sodium Chloride 0.9% [Normal Saline] 1,000 ml Med 01/08/21 15:30 Active IV .BOLUS Sodium Chloride 0.9% [Saline Flush] Med 01/08/21 15:28 Active 10 ml FLUSH ASDIRECTED PRN ED Antiemetic Medication Reflex [OM.PC] Stat Oth 01/08/21 15:29 Ordered Peripheral IV Insertion Adult [OM.PC] Stat Oth 01/08/21 15:28 Ordered Medication Orders Sodium Chloride (Normal Saline) 1,000 mls @ 1,000 mls/hr IV .BOLUS TRAMAINE Last Admin: 01/08/21 15:59 Dose: 1,000 mls/hr Documented by: FRANCO Sodium Chloride (Sodium Chloride 0.9% 10 Ml Syringe) 10 ml FLUSH ASDIRECTED PRN PRN Reason: Keep Vein Open Last Admin: 01/08/21 15:59 Dose: 10 ml Documented by: FRANCO Labs: Laboratory Tests 01/08/21 01/08/21 01/08/21 Range/Units 15:40 15:55 15:55 WBC Cancelled 4.11 Corrected WBC Cancelled RBC Cancelled 5.50 H Hgb Cancelled 17.1 H D Hct Cancelled 48.7 H MCV Cancelled 88.5 D MCH Cancelled 31.1 MCHC Cancelled 35.1 RDW Std Deviation Cancelled 43.1 Plt Count Cancelled 248 MPV Cancelled 9.0 L Neut % (Auto) Cancelled 61.6 Lymph % (Auto) Cancelled 23.6 [place] % (Auto) Cancelled 14.4 H Eos % (Auto) Cancelled 0.2 L Baso % (Auto) Cancelled 0.2 Neut # (Auto) Cancelled 2.53 Lymph # (Auto) Cancelled 0.97 L [place] # (Auto) Cancelled 0.59 H Eos # (Auto) Cancelled 0.01 L Baso # (Auto) Cancelled 0.01 Manual Slide Review Cancelled Sodium 143 (136-145) mEq/L Potassium 3.8 (3.5-5.1) mEq/L Chloride 103 (98-107) mEq/L Carbon Dioxide 30 (21-32) mEq/L Anion Gap 13.8 (5-15) BUN 7 (7-18) mg/dL Creatinine 0.8 (0.55-1.02) mg/dL Est Cr Clr Drug Dosing 81.53 mL/min Estimated GFR (MDRD) > 60 (>60) mL/min BUN/Creatinine Ratio 8.8 L (14-18) Glucose 109 H (70-99) mg/dL Calcium 8.6 (8.5-10.1) mg/dL Total Bilirubin 0.5 (0.2-1.0) mg/dL AST 36 (15-37) U/L ALT 70 H (14-59) U/L Alkaline Phosphatase 128 H (46-116) U/L C-Reactive Protein < 0.2 (<1.0) mg/dL Total Protein 7.2 (6.4-8.2) g/dl Albumin 4.0 (3.4-5.0) g/dl Globulin 3.2 gm/dL Albumin/Globulin Ratio 1.3 (1-2) Meds: Medications Generic Name Dose Route Start Last Admin Trade Name Freq PRN Reason Stop Dose Admin Sodium Chloride 1,000 mls @ 1,000 mls/hr 01/08/21 15:30 01/08/21 15:59 Normal Saline IV 1,000 mls/hr .BOLUS TRAMAINE Administration Sodium Chloride 10 ml 01/08/21 15:28 01/08/21 15:59 Sodium Chloride 0.9% 10 Ml Syringe FLUSH 10 ml ASDIRECTED PRN Administration Keep Vein Open Discontinued Medications Generic Name Dose Route Start Last Admin Trade Name Freq PRN Reason Stop Dose Admin Dexamethasone 6 mg 01/08/21 15:31 01/08/21 15:59 Dexamethasone 10 Mg/Ml Sdv IVPUSH 01/08/21 15:32 6 mg ONETIME ONE Administration Ondansetron HCl 4 mg 01/08/21 15:28 01/08/21 15:59 Ondansetron 4 Mg/2 Ml Sdv IVPUSH 01/08/21 15:29 4 mg ONETIME ONE Administration - Re-Assessments/Exams Free Text/Narrative Re-Assessment/Exam: 01/08/21 17:37 I ordered an IV NS 1L bolus, zofran 4mg IV, dexamethasone 6mg IV, labs, and CXR. Her CXR looks good. Her WBC was normal. Her Hgb was elevated at 17.1. Her ALT was slightly elevated at 70 along with her alk phos of 120. Her CRP is normal. 01/08/21 17:48 She feels a little better. I will get her on some zofran and dexamethasone. Departure - Departure Time of Disposition: 17:50 Disposition: Home, Self-Care 01 Condition: Good Clinical Impression: COVID-19 Nausea & vomiting Qualifiers: Vomiting type: unspecified Vomiting Intractability: non-intractable Qualified Code(s): R11.2 - Nausea with vomiting, unspecified Diarrhea Qualifiers: Diarrhea type: unspecified type Qualified Code(s): R19.7 - Diarrhea, unspecified - Discharge Information *PRESCRIPTION DRUG MONITORING PROGRAM REVIEWED*: Not Applicable *COPY OF PRESCRIPTION DRUG MONITORING REPORT IN PATIENT JOSSELIN: Not Applicable Prescriptions: dexAMETHasone [Dexamethasone] 6 mg PO Q6H #12 tab Ondansetron [Zofran ODT] 4 mg PO Q6H PRN #20 tab.dis PRN Reason: Nausea\vomiting Referrals: aKrrie Olson NP [Primary Care Provider] - 1 Week Forms: ED Department Discharge Additional Instructions: Drink plenty of fluids. Take zofran every 6 hours as needed for nausea and vomiting. Take the dexamethasone 6mg or 1 1/2 pill daily until gone. Follow up with your doctor within a week. Please return if you are worse. Sepsis Event Note (ED) - Evaluation Sepsis Screening Result: No Definite Risk - Focused Exam Vital Signs: Vital Signs Temp Pulse Resp BP Pulse Ox 01/08/21 14:58 97.9 F 99 16 123/101 H 97 - My Orders Last 24 Hours: My Active Orders 01/08/21 15:28 Cardiac Monitoring [RC] . DIRECTED Peripheral IV Care [RC] . DIRECTED Sodium Chloride 0.9% [Saline Flush] 10 ml FLUSH ASDIRECTED PRN Peripheral IV Insertion Adult [OM.PC] Stat 01/08/21 15:29 ED Antiemetic Medication Reflex [OM.PC] Stat 01/08/21 15:30 Sodium Chloride 0.9% [Normal Saline] 1,000 ml IV .BOLUS - Assessment/Plan Last 24 Hours: My Active Orders 01/08/21 15:28 Cardiac Monitoring [RC] . DIRECTED Peripheral IV Care [RC] . DIRECTED Sodium Chloride 0.9% [Saline Flush] 10 ml FLUSH ASDIRECTED PRN Peripheral IV Insertion Adult [OM.PC] Stat 01/08/21 15:29 ED Antiemetic Medication Reflex [OM.PC] Stat 01/08/21 15:30 Sodium Chloride 0.9% [Normal Saline] 1,000 ml IV .BOLUS
== END 2021-01-08 18:20 | disposition home or self-care (01) ==
LOC: JD.ED 14:41
DX: U07.1 COVID-19 (principal); R11.2 Nausea with vomiting, unspecified; R19.7 Diarrhea, unspecified; K21.9 Gastro-esophageal reflux disease without esophagitis; Z86.16 Personal history of COVID-19; Z91.040 Latex allergy status; Z91.030 Bee allergy status; Z88.0 Allergy status to penicillin; Z91.048 Other nonmedicinal substance allergy status; Z79.899 Other long term (current) drug therapy; Z72.0 Tobacco use
CPT/HCPCS: 36415; 71045; 80053; 85025; 86140; 96374; 96375; 99284; J1100; J2405; J7030

== ENCOUNTER 2021-02-19 18:25 | Emergency (ER) | payer MEDICAID ==
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
--- NOTE | 2021-02-20 07:40 | CR ---
Left elbow: 4 views of the left elbow were obtained. Comparison: No prior elbow study is available. No joint effusion is seen. Joint spaces are preserved. No acute fracture, dislocation or other bony abnormality is appreciated. Impression: 1. Nothing acute is seen on left elbow study. Diagnostic code #1
--- NOTE | 2021-02-20 07:40 | CT ---
Head CT Technique: Multiple axial sections through the brain were obtained. Intravenous contrast was not utilized. Reconstructed coronal and sagittal images were obtained. Comparison: Prior head CT study of 11/28/20. Findings: Ventricles along with basal cisterns and sulci over the convexities are within normal limits for the patient's age. No abnormal parenchymal densities are seen. No evidence of intracranial hemorrhage is seen. No midline shift or mass-effect is seen. Visualized paranasal sinuses and mastoid sinuses show nothing acute. No acute calvarial abnormality is appreciated. Impression: 1. Nothing acute is seen on noncontrast head CT study. 2. No change is seen from previous exam. Diagnostic code #1 I agree with preliminary report from [facility], finalized on 02/19/21, 9:23 PM CDT, code 1
--- NOTE | 2021-02-20 07:42 | CR ---
Right shoulder: 3 views of the right shoulder were obtained. Comparison: No prior right shoulder study is available. Glenohumeral joint and acromioclavicular joint appear within normal limits. No acute fracture, dislocation or other bony abnormality is appreciated. Impression: 1. No abnormality is identified on 3-view right shoulder study. Diagnostic code #1
--- NOTE | 2021-02-20 07:44 | CT ---
CT neck Technique: Multiple axial sections through the neck were obtained. Intravenous contrast was not utilized. Reconstructed coronal and sagittal images were obtained. Comparison: No prior CT neck study is available. Findings: The visualized lung apices show nothing acute. Thyroid gland shows no discrete abnormality. Submandibular salivary glands and parotid salivary glands show no abnormality. Parapharyngeal soft tissues are normal. No adenopathy or other abnormality is appreciated within the neck. Bone window settings were reviewed which show slight kyphosis within the cervical spine which is most likely positional. No acute osseous abnormality is appreciated. Impression: 1. Nothing acute is appreciated on noncontrast CT study of the neck. Diagnostic code #1 I agree with preliminary report from [facility], finalized on 02/19/21, 9:30 PM CDT, code 1
== END 2021-02-19 21:00 | disposition home or self-care (01) ==
LOC: JD.ED 18:25
DX: S10.93XA Contusion of unspecified part of neck, initial encounter (principal); S40.011A Contusion of right shoulder, initial encounter; S50.02XA Contusion of left elbow, initial encounter; K21.9 Gastro-esophageal reflux disease without esophagitis; Z79.899 Other long term (current) drug therapy; Z91.048 Other nonmedicinal substance allergy status; Z88.0 Allergy status to penicillin; Z91.040 Latex allergy status; Z88.8 Allergy status to other drugs, medicaments and biological substances; Z91.030 Bee allergy status; Z72.0 Tobacco use; Y04.2XXA Assault by strike against or bumped into by another person, initial encounter
CPT/HCPCS: 70450; 70450-26; 70490; 70490-26; 73030-26-RT; 73030-RT; 73080-26-LT; 73080-LT; 99285-25

== ENCOUNTER 2021-02-20 10:15 | Emergency (ER) | payer MEDICAID ==
[2021-02-20] MEDS ORDERED: Sodium Chloride 0.9% 10 ML Syringe FLUSH PRN (10:47)
[2021-02-20] MEDS ORDERED: Sodium Chloride 0.9% 1,000 ML IV ONE ×2 (10:49→12:07)
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
--- NOTE | 2021-02-20 11:38 | CR ---
Chest: Frontal view of the chest was obtained. Comparison: Prior chest x-ray of 01/08/21. Heart size and mediastinum are within normal limits. Lungs are clear with no acute parenchymal change. Prior cholecystectomy is noted. Bony structure shows nothing acute. Impression: 1. Nothing acute is seen on frontal chest x-ray. Diagnostic code #2
--- NOTE | 2021-02-20 11:39 | CT ---
Head CT Technique: Multiple axial sections through the brain were obtained. Intravenous contrast was not utilized. Reconstructed coronal and sagittal images were obtained. Comparison: Prior head CT study of 02/19/21. Findings: Ventricles along with basal cisterns and sulci over convexities are within normal limits for the patient's age. No abnormal parenchymal densities are seen. No evidence of intracranial hemorrhage is seen. No midline shift or mass-effect is seen. Bone window settings were reviewed. Visualized mastoid sinuses and paranasal sinuses show nothing acute. No acute calvarial abnormality is appreciated. Impression: 1. Nothing acute is seen on noncontrast head CT study. 2. No change is seen from recent head CT exam. Diagnostic code #1
[2021-02-20] MEDS ORDERED: Acetaminophen 325 MG Tab PO ONE (12:07)
[2021-02-20] MEDS ORDERED: Ketorolac 60 MG/2 ML SDV IM ONE (13:57)
== END 2021-02-20 14:50 | disposition home or self-care (01) ==
LOC: SUPCPDRO 10:15 → JD.ED 10:15
DX: R55 Syncope and collapse (principal); K21.9 Gastro-esophageal reflux disease without esophagitis; Z86.16 Personal history of COVID-19; Z91.048 Other nonmedicinal substance allergy status; Z88.0 Allergy status to penicillin; Z91.030 Bee allergy status; Z88.8 Allergy status to other drugs, medicaments and biological substances; Z88.1 Allergy status to other antibiotic agents; Z91.040 Latex allergy status; Z79.899 Other long term (current) drug therapy
CPT/HCPCS: 36415; 70450; 71045; 80053; 83735; 84484; 85025; 85379; 93005; 93225; 93226; 96372; 99284; A9270; J1885; J7030

== ENCOUNTER 2021-04-24 14:36 | Emergency (ER) | payer MEDICAID ==
[2021-04-24] MEDS ORDERED: Sodium Chloride 0.9% 10 ML Syringe FLUSH PRN (14:59)
--- NOTE | 2021-04-24 15:38 | EDM.PDOC ---
<Sage Alexandra M - Last Filed: 04/24/21 15:43> ED HPI GENERAL MEDICAL PROBLEM - General Chief Complaint: General Stated Complaint: AMBUL[facility] Time Seen by Provider: 04/24/21 14:41 Source of Information: Reports: Patient History Limitations: Reports: No Limitations - History of Present Illness INITIAL COMMENTS - FREE TEXT/NARRATIVE: 40-year-old female presents the emergency department today with complaints of a syncopal episode daily. Patient has been seen in this emergency department in the past for syncopal episodes. She states she has been placed on Holter monitor twice in the past and she states they did not show anything. She states that yesterday she was at work at the [employer] when she was carrying a box out of the freezer. She says that next thing you know she was in the front of the store with people standing over the top of her. She does not recall feeling dizzy or having any chest discomfort. She states she did hit her head and then was taken to the ambulance bay where they evaluated her. They recommended that she be seen in the emergency department however she elected not to come here. She states that today she has had a severe headache and that she vomited throughout the night last night. She also complains of severe cervical neck pain and right shoulder pain. Of note the patient does have a history of seizure disorder however she states she has not had a seizure in several months. She states she has been taking her seizure medications as prescribed and has not missed any dosages. She states she has been under more stress lately and has not been sleeping well. Right Neck Pain Score (Numeric/FACES): 10 - Related Data Allergies Allergy/AdvReac Type Severity Reaction Status Date / Time adhesive Allergy Rash Verified 02/19/21 18:40 amoxicillin [From Augmentin] Allergy Unknown Verified 02/19/21 18:40 bee venom protein (honey bee) Allergy Airway Verified 02/19/21 18:40 Tightness Bleach (Sodium Hypochlorite) Allergy Rash Verified 02/19/21 18:40 clavulanic acid Allergy Unknown Verified 02/19/21 18:40 [From Augmentin] latex Allergy Rash Verified 02/19/21 18:40 Home Meds: Home Meds ALPRAZolam [Xanax] 1 mg PO QID PRN 12/09/19 [History] Verapamil [Calan SR] 120 mg PO DAILY PRN 08/24/20 [History] Escitalopram [Lexapro] 20 mg PO DAILY 10/10/20 [History] Omeprazole 40 mg PO DAILY 10/10/20 [History] Hydrocodone/Acetaminophen [Hydrocodone-Acetamin 5-325 mg] 1 - 2 each PO Q6H PRN #15 tablet 02/19/21 [Rx] Hydrocodone/Acetaminophen [HYDROcodone-Acetaminophen 5-325 MG] 1 each PO Q6H PRN #12 tablet 04/24/21 [Rx] levETIRAcetam [Keppra] 250 mg PO BID 04/24/21 [History] Past Medical History HEENT History: Reports: Impaired Vision, Other (See Below) Other HEENT History: ear infections Cardiovascular History: Reports: None Respiratory History: Reports: None 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: Reports: GERD Genitourinary History: Reports: None 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: Neurological History: Reports: Migraines, Seizure Psychiatric History: Reports: Anxiety, Depression Endocrine/Metabolic History: Reports: None Hematologic History: Reports: None Immunologic History: Reports: None Oncologic (Cancer) History: Reports: None Dermatologic History: Reports: None - Infectious Disease History Infectious Disease History: Reports: Chicken Pox, Novel Coronavirus - Past Surgical History Head Surgeries/Procedures: Reports: None HEENT Surgical History: Reports: Adenoidectomy, Myringotomy w Tube(s), Oral Surgery, Tonsillectomy GI Surgical History: Reports: Cholecystectomy Female Surgical History: Reports: Section, D&C, Hysterectomy Musculoskeletal Surgical History: Reports: Shoulder Surgery Social & Family History - Family History Family Medical History: No Pertinent Family History Oncologic: Reports: Breast - Tobacco Use Tobacco Use Status *Q: Current Every Day Tobacco User Years of Tobacco use: 10 Packs/Tins Daily: 0.5 - Caffeine Use Caffeine Use: Reports: Soda - Recreational Drug Use Recreational Drug Use: No - Living Situation & Occupation Living situation: Reports: Single, with Significant Other (Boyfriend) Occupation: Unemployed ED ROS GENERAL - Review of Systems Review Of Systems: Comprehensive ROS is negative, except as noted in HPI. ED EXAM, GENERAL - Physical Exam Exam: See Below Exam Limited By: No Limitations General Appearance: Alert, WD/WN, Mild Distress Ears: Normal External Exam, Hearing Grossly Normal Nose: Normal Inspection Throat/Mouth: Normal Inspection, Normal Lips, Normal Voice, No Airway Compromise Head: Atraumatic Neck: Normal Inspection, Supple Respiratory/Chest: No Respiratory Distress, Lungs Clear, Normal Breath Sounds, No Accessory Muscle Use, Chest Non-Tender Cardiovascular: Normal Peripheral Pulses, Regular Rate, Rhythm, No Edema, No Murmur Peripheral Pulses: 2+: Radial (L), Radial (R) GI/Abdominal: Normal Bowel Sounds, Soft, Non-Tender, No Distention (Female) Exam: Deferred Rectal (Female) Exam: Deferred Back Exam: Normal Inspection Extremities: Normal Inspection, Normal Range of Motion, No Pedal Edema, Normal Capillary Refill. No: Non-Tender (Right shoulder tenderness) Neurological: Alert, Oriented, Normal Cognition Psychiatric: Normal Affect, Normal Mood Skin Exam: Warm, Dry, Intact, Normal Color, No Rash Lymphatic: No Adenopathy Course - Vital Signs Text/Narrative:: As stated above, patient presents with a syncopal episode yesterday. Now has severe occipital headache severe cervical neck discomfort as well as right yudi ulder pain. Neuro exam is unremarkable. Patient is in a c-collar at this time. She does have significant pain noted to the lateral aspect of her right shoulder. She does have full range of motion however is severely painful. Remainder of physical exam is unremarkable. Will obtain a cardiac work-up as well as a CT of the head and cervical spine and an x-ray of the right shoulder. Departure - Departure Disposition: Home, Self-Care 01 Clinical Impression: Concussion Qualifiers: Encounter type: initial encounter Loss of consciousness presence/duration: with LOC of 30 min or less Qualified Code(s): S06.0X1A - Concussion with loss of consciousness of 30 minutes or less, initial encounter Syncopal episodes Qualifiers: Syncope type: unspecified Qualified Code(s): R55 - Syncope and collapse - Discharge Information Prescriptions: Hydrocodone/Acetaminophen [HYDROcodone-Acetaminophen 5-325 MG] 1 each PO Q6H PRN #12 tablet PRN Reason: Pain Instructions: Concussion, Adult, [id number], Syncope, [id number] Referrals: Karrie Olson NP [Primary Care Provider] - Forms: ED Department Discharge, ED Return to Work/School Form Additional Instructions: Your evaluated in the ER today for your syncopal episode yesterday with resultant head injury. CTs, x-rays were unremarkable for acute findings, laboratory evaluation also was unremarkable. Your Keppra level is a send out however and we will not have these results for a few days, you will be called and made notified of this level. You likely suffered a mild concussion, due to your head injury. I would recommend that you take some Tylenol every 6 hours as needed for ongoing pain management. You were given a prescription for a strong pain medication, hydrocodone/acetaminophen 5/325mg, please take 1 tab every 6 hours as needed for pain not relieved by Tylenol or ibuprofen alone. Please note this medication does contain Tylenol in it, so do not take more than 4000 mg in a 24-hour time span. These medications can be addictive, so please take as few as possible to achieve adequate pain control. These meds can also be quite constipating, recommend that you increase your oral fluid intake and take a stool softener like MiraLAX while taking these medications. Do not drive while taking this medication. This medication was electronically sent to the [place] pharmacy located in the [facility] grocery store. Please follow-up with Karrie Olson, sometime within the next week for reevaluation to make sure your symptoms are getting better as expected. Also strongly recommend that you try to get a Zio patch type telemetry monitor or event monitor placed for ongoing management to rule out any cardiac etiology that could be causing her syncopal episodes. Please asked Karrie Olson if she can coordinate something like this. Do not hesitate to return to the ER at any time if symptoms change or worsen. <Linda Howell V - Last Filed: 04/24/21 17:36> #1 Interpretation EKG Date: 04/24/21 Time: 15:09 Rhythm: NSR Rate (Beats/Min): 77 [place]: Normal P-Wave: Present QRS: Normal ST-T: Normal QT: Normal EKG Interpretation Comments: No obvious ischemia or acute ST changes noted, reviewed by myself and Dr. Delacruz. Course - Vital Signs Last Recorded V/S: Last Vital Signs Temp 99.1 F 04/24/21 14:43 Pulse 87 04/24/21 14:43 Resp 14 04/24/21 14:43 BP 125/103 H 04/24/21 14:43 Pulse Ox 96 04/24/21 14:43 - Orders/Labs/Meds Orders: Active Orders 24 hr Category Date Time Status LEVETIRACETAM, S [REF] Stat Lab 04/24/21 15:30 Received Sodium Chloride 0.9% [Saline Flush] Med 04/24/21 14:59 Active 10 ml FLUSH ASDIRECTED PRN Saline Lock Insert [OM.PC] Stat Oth 04/24/21 14:59 Ordered Medication Orders Sodium Chloride (Sodium Chloride 0.9% 10 Ml Syringe) 10 ml FLUSH ASDIRECTED PRN PRN Reason: Keep Vein Open Labs: Laboratory Tests 04/24/21 04/24/21 Range/Units 15:30 15:30 WBC 7.44 (3.98-10.04) K/mm3 RBC 4.90 (3.98-5.22) M/mm3 Hgb 15.3 D (11.2-15.7) gm/dl Hct 45.1 H (34.1-44.9) % MCV 92.0 D (79.4-94.8) fl MCH 31.2 (25.6-32.2) pg MCHC 33.9 (32.2-35.5) g/dl RDW Std Deviation 43.9 (36.4-46.3) fL Plt Count 326 D (182-369) K/mm3 MPV 8.4 L (9.4-12.3) fl Neut % (Auto) 79.4 H (34.0-71.1) % Lymph % (Auto) 14.4 L (19.3-51.7) % [place] % (Auto) 5.6 (4.7-12.5) % Eos % (Auto) 0.4 L (0.7-5.8) Baso % (Auto) 0.1 (0.1-1.2) % Neut # (Auto) 5.90 (1.56-6.13) K/mm3 Lymph # (Auto) 1.07 L (1.18-3.74) K/mm3 [place] # (Auto) 0.42 H (0.24-0.36) K/mm3 Eos # (Auto) 0.03 L (0.04-0.36) K/mm3 Baso # (Auto) 0.01 (0.01-0.08) K/mm3 Sodium 141 (136-145) mEq/L Potassium 3.6 (3.5-5.1) mEq/L Chloride 105 (98-107) mEq/L Carbon Dioxide 28 (21-32) mEq/L Anion Gap 11.6 (5-15) BUN 5 L (7-18) mg/dL Creatinine 0.6 (0.55-1.02) mg/dL Est Cr Clr Drug Dosing 108.70 mL/min Estimated GFR (MDRD) > 60 (>60) mL/min BUN/Creatinine Ratio 8.3 L (14-18) Glucose 105 H (70-99) mg/dL Calcium 8.6 (8.5-10.1) mg/dL Magnesium 1.9 (1.8-2.4) mg/dL Total Bilirubin 0.5 (0.2-1.0) mg/dL AST 20 (15-37) U/L ALT 32 (14-59) U/L Alkaline Phosphatase 80 (46-116) U/L Troponin I < 0.017 (0.00-0.056) ng/mL Total Protein 6.7 (6.4-8.2) g/dl Albumin 3.7 (3.4-5.0) g/dl Globulin 3.0 gm/dL Albumin/Globulin Ratio 1.2 (1-2) Meds: Medications Generic Name Dose Route Start Last Admin Trade Name Freq PRN Reason Stop Dose Admin Sodium Chloride 10 ml 04/24/21 14:59 Sodium Chloride 0.9% 10 Ml Syringe FLUSH ASDIRECTED PRN Keep Vein Open Discontinued Medications Generic Name Dose Route Start Last Admin Trade Name Freq PRN Reason Stop Dose Admin Hydromorphone HCl 0.5 mg 04/24/21 16:49 Hydromorphone 0.5 Mg/0.5 Ml Syringe IM 04/24/21 16:50 ONETIME ONE - Re-Assessments/Exams Free Text/Narrative Re-Assessment/Exam: 04/24/21 16:31 Verbal report was taken from EDA Fang. I was able to review the patient's CTs and x-rays and all are unremarkable. Labs are still resulting at this time. 04/24/21 16:42 Labs are also unremarkable, the Keppra is a send out so will not have those answers today. I will go ahead and reassess the patient at bedside to see how she is feeling, likely try to refer her onto cardiology for a Zio patch or event monitor type situation due to her intermittent episodes of syncope. 04/24/21 16:49 Patient states she was having more of headache pain. So we will give her 0.5 mg IM Dilaudid for pain management and discharge her home. Patient is okay with this plan. Departure - Departure Time of Disposition: 16:53 Condition: Good - Discharge Information *PRESCRIPTION DRUG MONITORING PROGRAM REVIEWED*: Yes *COPY OF PRESCRIPTION DRUG MONITORING REPORT IN PATIENT JOSSELIN: No Sepsis Event Note (ED) - Focused Exam Vital Signs: Vital Signs Temp Pulse Resp BP Pulse Ox 04/24/21 14:43 99.1 F 87 14 125/103 H 96
--- NOTE | 2021-04-24 16:07 | CR ---
Chest: Upright view of the chest was obtained in AP projection. Comparison: Prior chest x-ray of 02/20/21. Heart size and mediastinum are within normal limits. Lungs are clear with no acute parenchymal change. No acute bony abnormality is appreciated. Surgical clip is seen from prior cholecystectomy. Impression: 1. Nothing acute is seen on AP chest x-ray. Diagnostic code #1
--- NOTE | 2021-04-24 16:08 | CR ---
Right shoulder: 3 views of the right shoulder were obtained. Comparison: Prior right shoulder study of 02/19/21. Glenohumeral joint and acromioclavicular joint appear within normal limits. No fracture, dislocation or other bony abnormality is seen. Impression: 1. Nothing acute is seen on 3-view right shoulder study. 2. No change from previous exam. Diagnostic code #1
--- NOTE | 2021-04-24 16:12 | CT ---
CT cervical spine Technique: Multiple axial sections through the cervical spine were obtained. Reconstructed coronal and sagittal images were obtained. Comparison: No prior cervical spine imaging is available. Findings: Vertebral body heights and disc spaces are maintained. No bony central or bony neural foraminal stenosis is seen. No fracture is identified. Apophyseal joints show very minimal scattered degenerative change. No abnormal subluxation is seen. Impression: 1. No acute fracture or subluxation is seen. 2. Minimal scattered degenerative change within the apophyseal joints is noted. Diagnostic code #2
--- NOTE | 2021-04-24 16:12 | CT ---
Head CT Technique: Multiple axial sections through the brain were obtained. Intravenous contrast was not utilized. Comparison: Prior head CT study of 02/20/21. Findings: Ventricles along with basal cisterns and sulci over the convexities are within normal limits for the patient's age. No abnormal parenchymal densities are seen. No evidence of intracranial hemorrhage is seen. No midline shift or mass-effect is seen. Bone window settings were reviewed. Visualized mastoid sinuses and paranasal sinuses show nothing acute. No acute calvarial abnormality is appreciated. Impression: 1. Nothing acute is seen on noncontrast head CT study. 2. No change is seen from previous study. Diagnostic code #1
[2021-04-24] MEDS ORDERED: HYDROmorphone 0.5 MG/0.5 ML Syringe IM ONE (16:49)
== END 2021-04-24 17:39 | disposition home or self-care (01) ==
LOC: JD.ED 14:36 → SUPCPDRO 14:36 → JD.ED 17:39
DX: S06.0X1A Concussion with loss of consciousness of 30 minutes or less, initial encounter (principal); R55 Syncope and collapse; K21.9 Gastro-esophageal reflux disease without esophagitis; Z72.0 Tobacco use; Z91.040 Latex allergy status; Z91.048 Other nonmedicinal substance allergy status; Z91.030 Bee allergy status; Z88.1 Allergy status to other antibiotic agents; Z79.899 Other long term (current) drug therapy; W22.8XXA Striking against or struck by other objects, initial encounter
CPT/HCPCS: 36415; 70450; 70450-26; 71045; 71045-26; 72125; 72125-26; 73030-26-RT; 73030-RT; 80053; 80177; 83735; 84484; 85025; 93005; 99284-25